=== PATIENT | female | born 1965 | race Caucasian/White ===

== ENCOUNTER 2016-08-02 00:34 | Emergency (ER) | payer MEDICAID, MEDICARE | END 2016-08-02 03:57 | disposition left against medical advice (07) | LOC: ER 00:34 | DX: D64.9 Anemia, unspecified (principal); K59.00 Constipation, unspecified; G89.4 Chronic pain syndrome; Z76.5 Malingerer [conscious simulation]; Z79.899 Other long term (current) drug therapy | CPT/HCPCS: 36415; 74022; 80053; 81001; 83690; 85025 ==